=== PATIENT | female | born 1965 | race Native Hawaiian/Other Pacific Islander ===

== ENCOUNTER 2017-10-22 20:44 | Emergency (ER) | payer MEDICAID, OTHER ==
[2017-10-22 21:29] VITALS: BP 108/73; PULSE 84; RESP 16; TEMP 98.8; O2SAT 98
[2017-10-22] MEDS ORDERED: Lidocaine 1% Inj (20ml) INFIL ONE (21:35)
--- NOTE | 2017-10-22 21:38 | C.PDOC ---
History Of Present Illness 52 y/o female presents to ed with swollen and painful finger x 3 days; pt started on leftover augmentin yesterday, no hx dm. no fever. no recalled injury. Time Seen by Provider: 10/22/17 21:33 Chief Complaint (Nursing): Finger,Hand,&Wrist History Per: Patient History/Exam Limitations: no limitations Onset/Duration Of Symptoms: Days (3) Current Symptoms Are (Timing): Worse Quality: Squeezing, "Pain" Severity: Moderate Exacerbating Factor(s): Movement Past Medical History Reviewed: Historical Data, Nursing Documentation, Vital Signs Vital Signs: Last Vital Signs Temp 98.8 F 10/22/17 21:25 Pulse 84 10/22/17 21:25 Resp 16 10/22/17 21:25 BP 108/73 10/22/17 21:25 Pulse Ox 98 10/22/17 22:38 - Medical History PMH: No Chronic Diseases Family History: States: Unknown Family Hx - Social History Hx Alcohol Use: No Hx Substance Use: No - Immunization History Hx Influenza Vaccination: No Hx Pneumococcal Vaccination: No Review Of Systems Constitutional: Negative for: Fever, Chills Skin: Positive for: Other (swollen right ring finger) Physical Exam - Physical Exam Appears: Non-toxic, No Acute Distress Skin: Warm, Dry Extremity: Other (right ring finger with erythema and swelling with tenderness around nailbed wtih white area to lateral aspect nail bed) Neurological/Psych: Oriented x3, Normal Speech, Normal Cognition ED Course And Treatment O2 Sat by Pulse Oximetry: 98 - Incision & Drainage Of Abscess Anesthesia: Lidocaine 1% Prep Used: Betadine Procedure: Incised W/Scalpel Blade#: (11), Drained Pus Medical Decision Making Medical Decision Making: pt with paronychia to right ring finger- i and d to be done. approx 1-2 ml purulent drainage, then some bleeding. pressure applied then dressing applied. Disposition Counseled Patient/Family Regarding: Diagnosis, Need For Followup - Disposition Referrals: Jas Sexton MD [Staff Provider] - Disposition: HOME/ ROUTINE Disposition Time: 22:37 Condition: IMPROVED Additional Instructions: Please soak finger several times a day in warm water, Continue antibiotics until completed. Wound check with Dr Sexton or in ER in 2 days. Instructions: Paronychia (DC) Forms: [facility] ([place]), General Discharge Instructions - Clinical Impression Clinical Impression: Paronychia of right ring finger
[2017-10-22] MEDS ORDERED: Lidocaine Hydrochloride 10 ML INJ ONE (21:45)
== END 2017-10-22 22:41 | disposition home or self-care (01) ==
LOC: C.ER 20:44
DX: L03.011 Cellulitis of right finger (principal)

== ENCOUNTER 2018-09-28 09:56 | Outpatient (CLI) | payer MEDICAID | END 2018-09-28 09:57 | disposition home or self-care (01) | LOC: C.DEXAIC 09:56 | DX: Z13.820 Encounter for screening for osteoporosis (principal); M81.0 Age-related osteoporosis without current pathological fracture ==